=== PATIENT | female | born 1955 | race African-American/Black ===

== ENCOUNTER → 2017-01-04 | Outpatient (CLI) | payer BC ==
--- NOTE | 2017-01-04 14:22 | CARD ---
APPROVED REPORT EXAM: Two-dimensional and M-mode echocardiogram with Doppler and color Doppler. Other Information Quality : Good INDICATION Peripheral Edema 2D DIMENSIONS RVDd2.8 (2.9-3.5cm)Left Atrium(2D)4.0 (1.6-4.0cm) IVSd1.0 (0.7-1.1cm)Aortic Root(2D)2.3 (2.0-3.7cm) LVDd4.6 (3.9-5.9cm)LVOT Diameter1.9 (1.8-2.4cm) PWd1.0 (0.7-1.1cm)LVDs2.4 (2.5-4.0cm) FS (%) 30.0 %SV79.4 ml LVEF(%)60.0 (>50%) Aortic Valve AoV Peak Josafat.188.5cm/sAoV VTI36.8cm AO Peak GR.14.2mmHgLVOT Peak Josafat.165.9cm/s AO Mean GR.8mmHgAVA (VMAX)2.51cm2 SONA (VTI)2.40cm2 Mitral Valve MV E Bufbfwyd132.1cm/sMV DECEL UGFZ079py MV A Gjtgjgap127.1cm/sE/A Ratio0.9 Tricuspid Valve TR P. Ccetcvqr518dw/sRAP NXUCSEMP6qmTd TR Peak Gr.64umIuYQDO29uxLr Pulmonary Vein S1 Bisddaub41.6cm/sD2 Qjdbzooe71.1cm/s LEFT VENTRICLE The left ventricle is normal size. There is normal left ventricular wall thickness. The left ventricu lar systolic function is normal. The Ejection Fraction is 55-60%. There is normal LV segmental wall m otion. Transmitral Doppler flow pattern is Grade I-abnormal relaxation pattern. RIGHT VENTRICLE The right ventricle is normal size. The right ventricular systolic function is normal. ATRIA The left atrium is mildly dilated. The right atrium size is normal. The interatrial septum is intact with no evidence for an atrial septal defect or patent foramen ovale as noted on 2-D or Doppler imagi ng. AORTIC VALVE The aortic valve is normal in structure and function. Doppler and Color Flow revealed no significant aortic regurgitation. There is no significant aortic valvular stenosis. MITRAL VALVE The mitral valve is normal in structure and function. There is no evidence of mitral valve prolapse. There is no mitral valve stenosis. Doppler and Color-flow revealed trace mitral regurgitation. TRICUSPID VALVE The tricuspid valve is normal in structure and function. Doppler and Color Flow revealed mild tricusp id regurgitation. There is moderate pulmonary hypertension. The PA pressure was estimated at 50 mmHg. There is no tricuspid valve stenosis. PULMONIC VALVE The pulmonary valve is normal in structure and function. Doppler and Color Flow revealed trace pulmon ic valvular regurgitation. There is no pulmonic valvular stenosis. GREAT VESSELS The aortic root is normal in size. The ascending aorta is normal in size. The IVC is normal in size a nd collapses >50% with inspiration. PERICARDIAL EFFUSION There is no evidence of significant pericardial effusion. Critical Notification Critical Value: No <Conclusion> The left ventricular systolic function is normal. The Ejection Fraction is 55-60%. There is normal LV segmental wall motion. The left atrium is mildly dilated. Trace mitral regurgitation. Mild tricuspid regurgitation. The PA pressure was estimated at 50 mmHg. There is no evidence of significant pericardial effusion.
== END | disposition home or self-care (01) ==
LOC: ECHO 08:01
PROVIDERS: ATTEND Internal Medicine Cardiovascular Disease
DX: I07.1 Rheumatic tricuspid insufficiency (principal); I27.2 Other secondary pulmonary hypertension
CPT/HCPCS: 93306

== ENCOUNTER → 2017-01-11 | Outpatient (CLI) | payer BC ==
[~2017-01-11] MED LIST: ZOLPIDEM 5 MG TABLET. PO ONE
--- NOTE | 2017-01-13 06:44 | SLEEP ---
DATE OF STUDY: 01/11/2017 ATTENDING PHYSICIAN: Dr. Pratt. OBJECTIVE: The patient is a 61-year-old female with difficulty staying asleep and snoring. [place] sleep score of 4. Body mass index 52. INTERPRETATION: Sleep architecture is characterized by a sleep efficiency of 48% across the 7.4 hours of recording time. Stage volume in my office shows decreased amount of REM sleep. Sleep onset latency is 1.6 hours. Respiratory monitoring shows a total of 182 events for an apnea-hypopnea index of 51.5 events per hour of sleep. Minimum oxygen saturation is 84%. The patient slept solely in the supine position. Treatment is initiated and excellent control of apnea is accomplished at 12 cm using a ResMed full facemask, small size. No significant cardiac arrhythmias or periodic limb movements of sleep are seen. IMPRESSION: Abnormal polysomnogram showing obstructive sleep apnea and hypopnea treatable on 12 cm of CPAP using the above described mask parameters. RECOMMENDATION: 1. The patient should be started on the above CPAP setting. 2. She should avoid central nervous system depressants, the supine position, and should pursue weight loss and in particular avoid alcohol. Thank you for letting us help with the patient's care. NICKIE CARDONA MD DR: EM/casey JOB#: [id number] / [id number] [address]
== END | disposition home or self-care (01) ==
LOC: SLPLAB 18:47
PROVIDERS: ATTEND Family Medicine
DX: R06.83 Snoring (principal); Z68.42 Body mass index [BMI] 45.0-49.9, adult; G47.33 Obstructive sleep apnea (adult) (pediatric)
CPT/HCPCS: 95810

== ENCOUNTER → 2017-02-27 | Outpatient (CLI) | payer BC ==
--- NOTE | 2017-02-28 10:09 | RAD ---
DATE: 02/27/2017 EXAM: DIGITAL SCREEN BILAT W/CAD HISTORY: Routine screening COMPARISON: 02/10/2016 This study was interpreted with the benefit of Computerized Aided Detection (CAD). The breast parenchyma is primarily fatty replaced. Breast parenchyma level density A. FINDINGS: No new or enlarging breast densities are seen. Minimal benign calcifications present. No suspicious microcalcifications have developed. IMPRESSION: Stable mammograms without evidence of malignancy. BI-RADS CATEGORY: 1 NEGATIVE RECOMMENDED FOLLOW-UP: 12M 12 MONTH FOLLOW-UP PQRS compliance statement: Patient information was entered into a reminder system with a target due date for the next mammogram. Mammography is a sensitive method for finding small breast cancers, but it does not detect them all and is not a substitute for careful clinical examination. A negative mammogram does not negate a clinically suspicious finding and should not result in delay in biopsying a clinically suspicious abnormality. "Our facility is accredited by the [employer] Mammography Program."
== END | disposition home or self-care (01) ==
LOC: MAMMO 09:00
PROVIDERS: ATTEND Family Medicine
DX: Z12.31 Encounter for screening mammogram for malignant neoplasm of breast (principal)
CPT/HCPCS: G0202; 77067